=== PATIENT | male | born 1995 | race African-American/Black ===

== ENCOUNTER 2016-12-06 00:19 | Emergency (ER) | payer OTHER ==
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
[2016-12-06 02:28] VITALS: BP 158/87
== END 2016-12-06 02:30 | disposition home or self-care (01) ==
LOC: ER 00:19
DX: M54.2 Cervicalgia (principal); Z72.0 Tobacco use

== ENCOUNTER 2017-06-10 15:16 | Emergency (ER) | payer OTHER ==
[2017-06-10 15:57] VITALS: BP 142/79
--- NOTE | 2017-06-10 16:22 | ERNOTE ---
Upper Extremity HPI - General Extremities Pain Location: hand: right Time Seen by Provider: 06/10/17 16:01 Source: patient, family Exam Limitations: no limitations - Immun/Allergies/Home Medications Immunizations: IMMUNIZATION HX Immunizations Up to Date Yes History of Influenza Vaccine No Hx Pneumococcal Vaccination No Allergies/Adverse Reactions: Allergies Allergy/AdvReac Type Severity Reaction Status Date / Time No Known Allergies Allergy Verified 06/10/17 15:57 Home Medications: HOME MEDICATIONS Naproxen [Naprosyn] 500 mg PO BID #60 tablet 06/10/17 [Last Taken Unknown] - History of Present Illness Narrative: Patient presents with pain at the fifth metacarpal right hand after striking a refrigerator door Occurred: just prior to arrival Location of Incident: home Severity: moderate Method of Injury: Reports: direct blow Loss of Consciousness: Reports: no loss of consciousness Other Injuries: Reports: none Review of Systems - Review of Systems Constitutional: Present: See HPI EYE: Present: no symptoms reported ENT: Present: no symptoms reported Respiratory: Present: no symptoms reported Cardiology: Present: no symptoms reported Gastrointestinal/Abdominal: Present: no symptoms reported Genitourinary: Present: no symptoms reported Musculoskeletal: Present: See HPI, joint pain Skin: Present: no symptoms reported Neurological: Present: no symptoms reported Endocrine: Present: no symptoms reported Hematologic/Lymphatic: Present: no symptoms reported Psych: Present: no symptoms reported - Patient's Past Medical History Patient History - Medical: No pertinent hx, Other - fractured fifth metacarpal right hand Patient History - Cardiac/Respiratory: No pertinent hx Patient History - Cancer: No Hx of Cancer Patient History - Surgical Procedures: No surgical history Patient History - Other: None - Social History Living Situations: home Abuse History: No History of abuse Psych History: No pertinent hx Smoking Status: Current every day smoker Have you smoked in the past 12 months: Yes Alcohol Use: occasionally Drug Use: marijuana - Immunizations Immunizations Up to Date: Yes Hx Pneumococcal Vaccination: No History of Influenza Vaccine: No Physical Exam - Physical Exam General Appearance: Present: wd/wn, alert, moderate distress Eye Exam: Normal inspection: bilateral, PERRL: bilateral Ears, Nose, Throat: Present: normal ENT inspection, H, normal pharynx Neck: Present: normal inspection, nontender Respiratory: Present: no respiratory distress, normal breath sounds, no accessory muscle use, chest nontender, lungs clear Cardiovascular/Chest: Present: regular rate, rhythm, no murmur, normal peripheral pulses Gastrointestinal/Abdominal: Present: normal bowel sounds, nontender, nondistended, soft, no organomegaly Rectal Exam: Present: deferred Back Exam: Present: normal inspection, normal range of motion Extremity Exam: Present: decreased range of motion, bony tenderness, extremity edema, other - pain and apparent deformity of the fifth metacarpal right hand Neurological Exam: Present: alert, oriented, normal mood/affect Skin Exam: Present: normal color, warm/dry Lymphatic Exam: Present: no adenopathy ED Progress - Vital Signs Patient's Vital Signs:: I have reviewed the patient's vital signs. Vital Signs: Vital Signs 06/10/17 15:52 Temperature 36.6 C Pulse Rate 81 Respiratory 16 Rate Blood Pressure 142/79 O2 Sat by Pulse 100 Oximetry - X-Ray X-Ray #1 X-Ray: hand Interpretation: Reviewed by me - Progress/Reassessment Chief Complaint: Hand Injury/Pain Plan - Plan Plan: Patient briefly placed in a splint to help stabilize the fifth metacarpal and he 'll be referred to orthopedic surgery for ongoing care. Patient be started on Naprosyn for the pain. Departure Clinical Impression: Boxer's fracture - Departure Disposition: Home self-care Condition: Good Instructions: Metacarpal Fracture, [id number], Boxer's Fracture Additional Instructions: call Dr. Castaneda for an appt Referrals: Emil Castaneda MD [Staff Physician] - Prescriptions: Naproxen [Naprosyn] 500 mg PO BID #60 tablet
== END 2017-06-10 16:30 | disposition home or self-care (01) ==
LOC: ER 15:16
PROC: 2W3EX1Z Immobilization of Right Hand using Splint (ICD-10-PCS; principal; 2017-06-10)
DX: M84.441A Pathological fracture, right hand, initial encounter for fracture (principal); F17.200 Nicotine dependence, unspecified, uncomplicated; W22.03XA Walked into furniture, initial encounter; Y93.9 Activity, unspecified; Y92.009 Unspecified place in unspecified non-institutional (private) residence as the place of occurrence of the external cause

== ENCOUNTER 2017-11-19 22:22 | Emergency (ER) | payer SELFPAY ==
--- NOTE | 2017-11-19 22:44 | ERNOTE ---
ENT HPI Presenting Symptoms: other - sore throat Time Seen by Provider: 11/19/17 22:36 Source: patient Exam Limitations: clinical condition - Immun/Allergies/Home Medications Immunizations: IMMUNIZATION HX Immunizations Up to Date Yes History of Influenza Vaccine No Hx Pneumococcal Vaccination No Allergies/Adverse Reactions: Allergies Allergy/AdvReac Type Severity Reaction Status Date / Time No Known Allergies Allergy Verified 06/10/17 15:57 Home Medications: HOME MEDICATIONS NK [No Home Medication] 11/19/17 [Last Taken Unknown] - History of Present Illness Narrative: Pt had rapid onset of sore throat earlier tonight. He states it hurts to even swallow saliva. Severity: Present: moderate ENT Location: Present: throat Prearrival Treatment: Present: no prearrival treatment Modifying Factors - Improves: Reports: nothing Modifying Factors - Worsens: Reports: coughing Associated Symptoms - ENT: Reports: poor solid intake, voice change Review of Systems - Review of Systems Constitutional: Absent: recent illness, fever ENT: Present: See HPI Respiratory: Absent: shortness of breath, cough Gastrointestinal/Abdominal: Absent: nausea, vomiting Skin: Present: no symptoms reported Neurological: Absent: weakness, numbness, tingling - Patient's Past Medical History Patient History - Medical: No pertinent hx, Other Patient History - Cardiac/Respiratory: No pertinent hx Patient History - Cancer: No Hx of Cancer Patient History - Surgical Procedures: No surgical history Patient History - Other: None - Social History Living Situations: home Abuse History: No History of abuse Psych History: No pertinent hx Smoking Status: Current every day smoker Have you smoked in the past 12 months: Yes Do you dip or chew tobacco: No Alcohol Use: rarely Drug Use: marijuana - Immunizations Immunizations Up to Date: Yes Hx Pneumococcal Vaccination: No History of Influenza Vaccine: No Physical Exam - Physical Exam General Appearance: Present: wd/wn, alert, no apparent distress Head Exam: Present: normal inspection, no evidence of injury Ears, Nose, Throat: Present: pharyngeal erythema - -cobblestoning posterior, tonsillar swelling - mild with minimal erythema. Neck: Present: normal inspection, nontender, supple Respiratory: Present: no respiratory distress, no accessory muscle use Back Exam: Present: normal inspection, normal range of motion Extremity Exam: Present: normal inspection, normal range of motion Neurological Exam: Present: alert, oriented, no motor/sensory deficits Skin Exam: Present: normal color, warm/dry Lymphatic Exam: Present: no adenopathy ED Progress - Results and Orders Patient's Lab Results:: I have reviewed the patient's lab results. Results and Orders: Laboratory Tests 11/19/17 22:43 Group A Strep Rapid Negative - Vital Signs Patient's Vital Signs:: I have reviewed the patient's vital signs. Vital Signs: Vital Signs 11/19/17 22:25 Temperature 36.8 C Pulse Rate 99 Respiratory 16 Rate Blood Pressure 138/72 O2 Sat by Pulse 100 Oximetry - Progress/Reassessment Chief Complaint: Sore Throat Progress Note-Subjective: 11/19/17 23:20 Pt reports pain is improved but not completely resolved. Discussed negative strep screen and viral pharyngitis. Given Rx for Magic mouth wash and remaining from tonights dose to take home. Departure Clinical Impression: Viral pharyngitis - Departure Disposition: Home self-care Condition: Good Instructions: Pharyngitis, [id number] Additional Instructions: See your primary care provider if not improving. You may use cepacol extra strength sore throat losenges instead to help with pain.
[2017-11-19] MEDS ORDERED: MAG HYDROX/ALUMINUM HYD/SIMETH 30 ML UDC PO ONE (22:57)
[2017-11-19] MEDS ORDERED: LIDOCAINE HCL 20 ML UDC MM ONE (22:57)
[2017-11-19] MEDS ORDERED: diphenhydrAMINE HCL 12.5 MG/5 ML BTL PO ONE (22:57)
[2017-11-19 23:09] VITALS: BP 141/70
== END 2017-11-19 23:33 | disposition home or self-care (01) ==
LOC: ER 22:22
DX: J02.9 Acute pharyngitis, unspecified (principal)